=== PATIENT | female | born 1965 | race Caucasian/White ===

== ENCOUNTER 2017-12-17 06:09 | Day surgery (SDC) | payer OTHER ==
[2017-12-17] MEDS: LIDOCAINE 2% MDV 20 ML VIAL As Ordered ×2 (07:45)
[2017-12-17] MEDS: BUPIVACAINE HCL 0.5% 30 ML VIAL As Ordered ×2 (07:45)
[2017-12-17] MEDS ORDERED: ONDANSETRON 4MG/2ML VIAL (J2405) As Ordered ×2 (08:03)
[2017-12-17] MEDS ORDERED: LIDOCAINE 2% INJ 100 MG/5 ML SDV (FOR ANES.) As Ordered ×2 (08:03)
[2017-12-17] MEDS ORDERED: MIDAZOLAM INJ 2 MG/2 ML VIAL (J2250) As Ordered ×2 (08:03)
[2017-12-17] MEDS ORDERED: PROPOFOL 200 MG/20 ML VIAL As Ordered ×6 (08:03→09:23)
[2017-12-17] MEDS ORDERED: dexameTHASONE 4 MG/ML 1ML VIAL (J1100) As Ordered ×2 (08:03)
[2017-12-17] MEDS ORDERED: fentaNYL 100 MCG/2 ML INJECTION (J3010) As Ordered ×2 (08:03)
[2017-12-17] MEDS ORDERED: ePHEDrine SULFATE 25 MG/5 ML(5MG/ML) SYRINGE As Ordered ×2 (08:14)
[2017-12-17] MEDS: BACITRACIN PWD 50,000 UNITS VIAL As Ordered ×2 (08:22)
[2017-12-17] MEDS: NEOSPORIN GU IRRIG 20 ML VIAL As Ordered ×2 (08:22)
[2017-12-17] MEDS: dexameTHASONE 4 MG/ML 1ML VIAL (J1100) As Ordered ×2 (09:48)
[2017-12-17] MEDS ORDERED: ONDANSETRON 4MG/2ML VIAL (J2405) IV ×2 (10:30)
[2017-12-17] MEDS ORDERED: LR 1,000 ML IV ×2 (10:30)
[2017-12-17] MEDS ORDERED: PERCOCET 5MG/325MG TAB PO ×2 (10:30)
== END 2017-12-17 11:51 | disposition home or self-care (01) ==
LOC: M SDC 06:09
DX: M20.12 Hallux valgus (acquired), left foot (principal); M21.612 Bunion of left foot; Z79.899 Other long term (current) drug therapy
CPT/HCPCS: 28297

== ENCOUNTER → 2018-10-05 | Outpatient (REF) | payer OTHER ==
[~2018-10-05] MED LIST: BIMA01SOL OU; ISTA0.5S OP; XALA0.007 OU
== END ==
LOC: M LAB LCGH 11:57
PROVIDERS: ATTEND Family Medicine
DX: Z12.4 Encounter for screening for malignant neoplasm of cervix (principal)

== ENCOUNTER → 2019-02-06 | Outpatient (CLI) | payer OTHER ==
[2019-02-06 10:51] LABS: APPEARANCE, URINE CLEAR (CLEAR); BACTERIA, URINE AUTO NEGATIVE (NEGATIVE); BILIRUBIN, URINE AUTO NEGATIVE (NEGATIVE); BLOOD, URINE BLOOD 1+ (NEGATIVE); COLOR, URINE YELLOW (YELLOW); GLUCOSE, URINE (UA) AUTO NEGATIVE (NEGATIVE); KETONE, URINE AUTO TRACE mg/dL (NEGATIVE); LEUKOCYTE ESTERASE, URINE AUTO NEGATIVE (NEGATIVE); NITRITE, URINE AUTO NEGATIVE (NEGATIVE); PROTEIN, URINE AUTO NEGATIVE (NEGATIVE); RBC, URINE AUTO 2 /HPF (0-3); SPECIFIC GRAVITY URINE AUTO 1.006 (1.002-1.035); SQUAMOUS EPITHELIAL CELL UR AU 0 /HPF (0-6); UROBILINOGEN, URINE AUTO 0.2 mg/dL (0.0-2.0); WBC, URINE AUTO 1 /HPF (0-3)
[2019-02-06 11:04] LABS: BASO % 0.4 % (0.0-1.0); EOS # 0.1 10^3/uL (0.0-0.5); EOS % 1.2 % (0.0-3.0); HEMATOCRIT 42.2 % (36.0-47.0); HEMOGLOBIN 14.2 g/dl (12.0-15.5); LYMPH # 1.4 10^3/uL (1.5-5.0); LYMPH % 26.8 % (24.0-44.0); MEAN CORPUSCULAR HEMOGLOBIN 30.2 pg (27.0-33.0); MEAN CORPUSCULAR HGB CONC 33.6 g/dl (32.0-36.5); MEAN CORPUSCULAR VOLUME 89.8 fl (80.0-96.0); MONO # 0.3 10^3/uL (0.0-0.8); MONO % 5.4 % (0.0-5.0); NEUTROPHILS # 3.3 10^3/uL (1.5-8.5); NEUTROPHILS % 65.8 % (36.0-66.0); PLATELET COUNT, AUTOMATED 291 10^3/uL (150-450)
[2019-02-06 11:28] LABS: CREATININE,RANDOM URINE 41.7 MG/DL; TOTAL PROTEIN,RANDOM URINE 10.2 MG/DL (0.0-12.0)
[2019-02-06 11:31] LABS: ALT/SGPT 22 U/L (12-78); BILIRUBIN,TOTAL 0.7 MG/DL (0.2-1.0); BLOOD UREA NITROGEN 8 MG/DL (7-18); CALCIUM LEVEL 9.3 MG/DL (8.5-10.1); CARBON DIOXIDE LEVEL 29 MEQ/L (21-32); CHLORIDE LEVEL 105 MEQ/L (98-107); CREATININE FOR GFR 0.81 MG/DL (0.55-1.30); GLOMERULAR FILTRATION RATE > 60.0 (>51); GLUCOSE, FASTING 93 MG/DL (70-100); POTASSIUM SERUM 4.2 MEQ/L (3.5-5.1); SODIUM LEVEL 140 MEQ/L (136-145)
[2019-02-06 11:32] LABS: ALBUMIN 4.1 GM/DL (3.2-5.2); C REACTIVE PROTEIN QUANTITATIV < 0.30 MG/DL (0.00-0.30); COMPLEMENT C3 88 MG/DL (90-180); COMPLEMENT C4 11 MG/DL (10-40); TOTAL PROTEIN 7.7 GM/DL (6.4-8.2)
[2019-02-06 11:54] LABS: ERYTHROCYTE SEDIMENTATION RATE 24 mm/hr (0-30)
[2019-02-10 14:22] LABS: ANA (HEP2) Positive (.); RNP ANTIBODY 1.1 AI (0.0-0.9); SMITHS ANTIBODY < 0.2 AI (0.0-0.9); SSA SJOGRENS A >8.0 AI (0.0-0.9); SSB SJOGRENS B 0.5 AI (0.0-0.9)
== END ==
LOC: M LAB 10:08
PROVIDERS: ATTEND Internal Medicine Rheumatology
DX: M32.9 Systemic lupus erythematosus, unspecified (principal)

== ENCOUNTER → 2019-08-07 | Outpatient (REF) | payer OTHER ==
[2019-08-07 13:55] LABS: BASO % 0.7 % (0.0-1.0); EOS % 0.9 % (0.0-3.0); HEMATOCRIT 44.7 % (36.0-47.0); HEMOGLOBIN 14.7 g/dl (12.0-15.5); LYMPH # 1.3 10^3/uL (1.5-5.0); LYMPH % 28.2 % (24.0-44.0); MEAN CORPUSCULAR HEMOGLOBIN 29.6 pg (27.0-33.0); MEAN CORPUSCULAR HGB CONC 32.9 g/dl (32.0-36.5); MEAN CORPUSCULAR VOLUME 90.1 fl (80.0-96.0); MONO # 0.3 10^3/uL (0.0-0.8); MONO % 6.1 % (0.0-5.0); NEUTROPHILS # 2.9 10^3/uL (1.5-8.5); NEUTROPHILS % 63.9 % (36.0-66.0); PLATELET COUNT, AUTOMATED 312 10^3/uL (150-450); RED BLOOD COUNT 4.96 10^6/uL (4.00-5.40); WHITE BLOOD COUNT 4.6 10^3/uL (4.0-10.0)
[2019-08-07 14:02] LABS: ALBUMIN 4.3 GM/DL (3.2-5.2); ALT/SGPT 20 U/L (12-78); BILIRUBIN,TOTAL 0.5 MG/DL (0.2-1.0); BLOOD UREA NITROGEN 12 MG/DL (7-18); CALCIUM LEVEL 9.6 MG/DL (8.5-10.1); CARBON DIOXIDE LEVEL 30 MEQ/L (21-32); CHLORIDE LEVEL 105 MEQ/L (98-107); COMPLEMENT C3 88 MG/DL (90-180); COMPLEMENT C4 11 MG/DL (10-40); CREATININE FOR GFR 0.78 MG/DL (0.55-1.30); GLOMERULAR FILTRATION RATE > 60.0 (>51); GLUCOSE, FASTING 91 MG/DL (70-100); SODIUM LEVEL 139 MEQ/L (136-145); TOTAL PROTEIN 8.1 GM/DL (6.4-8.2)
[2019-08-07 14:51] LABS: ERYTHROCYTE SEDIMENTATION RATE 14 mm/hr (0-30)
[2019-08-07 18:44] LABS: CREATININE,RANDOM URINE 40.9 MG/DL; TOTAL PROTEIN,RANDOM URINE 8.2 MG/DL (0.0-12.0)
[2019-08-09 14:09] LABS: ANTI DS-DNA AB Positive (Negative)
== END ==
LOC: M SFHCRHEU 10:30
PROVIDERS: ATTEND Internal Medicine
DX: M32.9 Systemic lupus erythematosus, unspecified (principal)

== ENCOUNTER → 2021-04-02 | Outpatient (REF) | payer OTHER ==
[2021-04-02 17:34] LABS: BASO % 0.7 % (0.0-1.0); EOS # 0.1 10^3/uL (0.0-0.5); EOS % 0.9 % (0.0-3.0); HEMATOCRIT 42.8 % (36.0-47.0); HEMOGLOBIN 14.2 g/dl (12.0-15.5); LYMPH % 36.2 % (24.0-44.0); MEAN CORPUSCULAR HEMOGLOBIN 30.1 pg (27.0-33.0); MEAN CORPUSCULAR HGB CONC 33.2 g/dl (32.0-36.5); MEAN CORPUSCULAR VOLUME 90.9 fl (80.0-96.0); MONO # 0.5 10^3/uL (0.0-0.8); MONO % 8.2 % (2.0-8.0); NEUTROPHILS % 53.8 % (36.0-66.0); PLATELET COUNT, AUTOMATED 301 10^3/uL (150-450); RED BLOOD COUNT 4.71 10^6/uL (4.00-5.40); WHITE BLOOD COUNT 5.6 10^3/uL (4.0-10.0)
[2021-04-02 17:50] LABS: CREATININE,RANDOM URINE 33.5 MG/DL; TOTAL PROTEIN,RANDOM URINE < 5.0 MG/DL (0.0-12.0)
[2021-04-02 17:51] LABS: APPEARANCE, URINE CLEAR (CLEAR); BACTERIA, URINE AUTO NEGATIVE (NEGATIVE); BILIRUBIN, URINE AUTO NEGATIVE (NEGATIVE); BLOOD, URINE BLOOD NEGATIVE (NEGATIVE); COLOR, URINE STRAW (YELLOW); GLUCOSE, URINE (UA) AUTO NEGATIVE (NEGATIVE); KETONE, URINE AUTO TRACE mg/dL (NEGATIVE); LEUKOCYTE ESTERASE, URINE AUTO 1+ (NEGATIVE); MUCUS, URINE SMALL (NEGATIVE); NITRITE, URINE AUTO NEGATIVE (NEGATIVE); PROTEIN, URINE AUTO NEGATIVE (NEGATIVE); RBC, URINE AUTO 0 /HPF (0-3); SPECIFIC GRAVITY URINE AUTO 1.005 (1.002-1.035); SQUAMOUS EPITHELIAL CELL UR AU 1 /HPF (0-6); UROBILINOGEN, URINE AUTO 0.2 mg/dL (0.0-2.0); WBC, URINE AUTO 3 /HPF (0-3)
[2021-04-02 18:01] LABS: ALBUMIN 4.4 GM/DL (3.2-5.2); ALT/SGPT 22 U/L (12-78); BILIRUBIN,TOTAL 0.7 MG/DL (0.2-1.0); BLOOD UREA NITROGEN 9 MG/DL (7-18); CALCIUM LEVEL 9.7 MG/DL (8.5-10.1); CARBON DIOXIDE LEVEL 29 MEQ/L (21-32); CHLORIDE LEVEL 103 MEQ/L (98-107); COMPLEMENT C3 87 MG/DL (90-180); COMPLEMENT C4 11 MG/DL (10-40); CREATININE FOR GFR 0.74 MG/DL (0.55-1.30); GLOMERULAR FILTRATION RATE > 60.0 (>51); GLUCOSE, FASTING 79 MG/DL (70-100); IMMUNOGLOBULIN G 1590 MG/DL (681-1648); SODIUM LEVEL 138 MEQ/L (136-145); TOTAL PROTEIN 8.3 GM/DL (6.4-8.2)
[2021-04-02 18:26] LABS: ERYTHROCYTE SEDIMENTATION RATE 19 mm/hr (0-30)
[2021-04-03 12:03] LABS: ALBUMIN 4.97 GM/DL (3.29-5.55); ALBUMIN % 59.9 % (55.8-66.1); ALPHA-1-GLOBULIN % 3.5 % (2.9-4.9); ALPHA-1-GLOBULINS 0.29 GM/DL (0.17-0.41); ALPHA-2-GLOBULINS 0.83 GM/DL (0.42-0.99); BETA-1-GLOBULINS 0.43 GM/DL (0.28-0.60); BETA-1-GLOBULINS % 5.2 % (4.7-7.2); BETA-2-GLOBULINS % 3.5 % (3.2-6.5); GAMMA GLOBULIN % 17.9 % (11.1-18.8)
[2021-04-03 12:04] LABS: BETA-2-GLOBULINS 0.29 GM/DL (0.19-0.55); GAMMA GLOBULINS 1.49 GM/DL (0.65-1.58)
== END ==
LOC: M SFHCRHEU 15:19
PROVIDERS: ATTEND Internal Medicine Rheumatology
DX: M35.01 Sjogren syndrome with keratoconjunctivitis (principal)

== ENCOUNTER → 2021-06-23 | Outpatient (CLI) | payer OTHER ==
[2021-06-23 11:22] LABS: BASO % 0.7 % (0.0-1.0); EOS % 0.5 % (0.0-3.0); HEMOGLOBIN 14.7 g/dl (12.0-15.5); LYMPH # 1.3 10^3/uL (1.5-5.0); LYMPH % 23.8 % (24.0-44.0); MEAN CORPUSCULAR HEMOGLOBIN 29.6 pg (27.0-33.0); MEAN CORPUSCULAR HGB CONC 33.4 g/dl (32.0-36.5); MEAN CORPUSCULAR VOLUME 88.5 fl (80.0-96.0); MONO # 0.3 10^3/uL (0.0-0.8); MONO % 6.2 % (2.0-8.0); NEUTROPHILS # 3.7 10^3/uL (1.5-8.5); NEUTROPHILS % 68.1 % (36.0-66.0); PLATELET COUNT, AUTOMATED 298 10^3/uL (150-450); RED BLOOD COUNT 4.97 10^6/uL (4.00-5.40); WHITE BLOOD COUNT 5.5 10^3/uL (4.0-10.0)
[2021-06-23 11:52] LABS: ALBUMIN 4.2 GM/DL (3.2-5.2); ALT/SGPT 17 U/L (12-78); BILIRUBIN,TOTAL 0.4 MG/DL (0.2-1.0); BLOOD UREA NITROGEN 8 MG/DL (7-18); CALCIUM LEVEL 9.5 MG/DL (8.5-10.1); CARBON DIOXIDE LEVEL 29 MEQ/L (21-32); CHLORIDE LEVEL 107 MEQ/L (98-107); CREATININE FOR GFR 0.71 MG/DL (0.55-1.30); GLOMERULAR FILTRATION RATE > 60.0 (>51); GLUCOSE, FASTING 99 MG/DL (70-100); POTASSIUM SERUM 4.5 MEQ/L (3.5-5.1); SODIUM LEVEL 140 MEQ/L (136-145); TOTAL PROTEIN 7.9 GM/DL (6.4-8.2)
[2021-06-23 11:57] LABS: ERYTHROCYTE SEDIMENTATION RATE 20 mm/hr (0-30)
== END ==
LOC: M LAB 10:37
PROVIDERS: ATTEND Internal Medicine Rheumatology
DX: M32.9 Systemic lupus erythematosus, unspecified (principal)

== ENCOUNTER → 2021-07-18 | Outpatient (CLI) | payer OTHER ==
[~2021-07-18] MED LIST changes: +LIDOCAINE 1% MDV 20ML VIAL As Ordered ONE; +PLAQ200T4 PO
[2021-07-18 09:18] VITALS: BP 140/67
== END ==
LOC: M IRPRO 07:59
PROVIDERS: ATTEND Orthopaedic Surgery
DX: Z96.641 Presence of right artificial hip joint (principal)

== ENCOUNTER → 2021-09-30 | Outpatient (CLI) | payer OTHER ==
[~2021-09-30] MED LIST changes: -LIDOCAINE 1% MDV 20ML VIAL As Ordered ONE
== END ==
LOC: M SOG 13:06
PROVIDERS: ATTEND Orthopaedic Surgery
DX: M54.2 Cervicalgia (principal); M25.512 Pain in left shoulder

== ENCOUNTER → 2021-11-04 | Outpatient (CLI) | payer OTHER | LOC: M PLAIMG 07:02 | PROVIDERS: ATTEND Orthopaedic Surgery | DX: M47.22 Other spondylosis with radiculopathy, cervical region (principal) ==

== ENCOUNTER → 2022-08-31 | Outpatient (REF) | payer OTHER ==
[2022-08-31 19:09] LABS: HEPATITIS B SURFACE ANTIGEN NEGATIVE (NEGATIVE)
[2022-08-31 19:29] LABS: HEPATITIS B CORE ANTIBODY IGM NEGATIVE (NEGATIVE)
== END ==
LOC: M SFHCRHEU 12:22
PROVIDERS: ATTEND Internal Medicine Rheumatology
DX: M32.9 Systemic lupus erythematosus, unspecified (principal); I73.00 Raynaud's syndrome without gangrene; M35.01 Sjogren syndrome with keratoconjunctivitis; Z79.899 Other long term (current) drug therapy

== ENCOUNTER → 2022-10-29 | Outpatient (CLI) | payer OTHER | LOC: M SOG 08:30 | PROVIDERS: ATTEND Internal Medicine | DX: M25.552 Pain in left hip (principal) ==

== ENCOUNTER → 2023-05-21 | Outpatient (REF) | payer OTHER | LOC: M SFHCRHEU 15:04 | PROVIDERS: ATTEND Internal Medicine Rheumatology | DX: M32.9 Systemic lupus erythematosus, unspecified (principal); I73.00 Raynaud's syndrome without gangrene; M35.01 Sjogren syndrome with keratoconjunctivitis; Z79.899 Other long term (current) drug therapy ==

== ENCOUNTER → 2023-10-12 | Outpatient (REF) | payer OTHER | LOC: M SFHCRHEU 10:12 | PROVIDERS: ATTEND Internal Medicine Rheumatology | DX: M32.9 Systemic lupus erythematosus, unspecified (principal); I73.00 Raynaud's syndrome without gangrene; M35.01 Sjogren syndrome with keratoconjunctivitis; Z79.899 Other long term (current) drug therapy ==